=== PATIENT | male | born 1990 | race Caucasian/White ===

== ENCOUNTER 2018-10-13 05:29 | Emergency (ER) | payer MEDICAID, OTHER ==
[~2018-10-13] VITALS: Ht 170.2 cm; Wt 60.8 kg
[2018-10-13 05:32] VITALS: BP 117/81
== END 2018-10-13 06:05 | disposition home or self-care (01) ==
LOC: ED 05:45
DX: K08.89 Other specified disorders of teeth and supporting structures (principal); F17.210 Nicotine dependence, cigarettes, uncomplicated
CPT/HCPCS: 99283